=== PATIENT | female | born 1995 | race Caucasian/White ===

== ENCOUNTER 2019-11-08 21:38 | Emergency (ER) | payer OTHER ==
[~2019-11-08] VITALS: Ht 152.4 cm; Wt 73.0 kg
[~2019-11-08 21:38] MED LIST: PHEN32.46
[2019-11-08 22:36] VITALS: BP 112/64
[2019-11-08] MEDS ORDERED: SODIUM CHLORIDE 0.9% 1,000 ML IV ONE (23:15)
[2019-11-08] MEDS ORDERED: ONDANSETRON HCL 4MG/2ML INJ IV STA (23:15)
[2019-11-08] MEDS ORDERED: LEVETIRACETAM 500MG PREMIX 100 ML IV ONE (23:15)
== END 2019-11-08 23:58 | disposition left against medical advice (07) ==
LOC: ER 21:38
DX: G40.909 Epilepsy, unspecified, not intractable, without status epilepticus (principal); F84.0 Autistic disorder; H54.7 Unspecified visual loss
CPT/HCPCS: 93005; 99283; J7030